=== PATIENT | male | born 1985 | race Caucasian/White ===

== ENCOUNTER 2023-03-18 23:26 | Emergency (ER) | payer SELFPAY ==
[2023-03-19 00:05] VITALS: BP 125/78; PULSE 64
== END 2023-03-19 00:25 | disposition home or self-care (01) ==
LOC: JP.ED 23:26
DX: S61.233A Puncture wound without foreign body of left middle finger without damage to nail, initial encounter (principal); W26.8XXA Contact with other sharp object(s), not elsewhere classified, initial encounter
CPT/HCPCS: 99283